=== PATIENT | male | born 1990 | race Caucasian/White ===

== ENCOUNTER 2019-07-10 14:26 | Emergency (ER) | payer BC, SELFPAY ==
[2019-07-10 14:38] VITALS: BP 126/73; PULSE 51; RESP 16; TEMP 36.2; O2SAT 100; BMI 72.7
[2019-07-10] MEDS: SODIUM CHLORIDE 0.9% 1,000 ML 150 ML IV (15:09)
[2019-07-10 15:15] LABS: Add Manual Diff / Slide Review NO; Basophils Absolute Auto 0 /uL (0-100); Basophils Percent Auto 0.6 % (0-2); Eosinophils Absolute Auto 300 /uL (0-450); Eosinophils Percent Auto 4.3 % (2-4); Hematocrit 43.8 % (41-53); Lymphocytes Absolute Auto 3300 /uL (1100-4500); Lymphocytes Percent Auto 43.8 % (25-40); Mean Corpuscular HGB Conc 34.3 % (30-36); Mean Corpuscular Hemoglobin 31.8 PG (26-34); Mean Corpuscular Volume 92.8 fL (80-100); Monocytes Absolute Auto 500 /uL (0-900); Monocytes Percent Auto 6.9 % (3-14); Neutrophils Absolute Auto 3400 /uL (1500-7000); Neutrophils Percent Auto 44.4 % (50-75); Platelet Count 227 X10^3/uL (150-400); Red Blood Cell Count 4.72 X10^6/uL (4.5-5.9); Red Cell Distribution Width 13.4 % (11.6-14.8); White Blood Cell Count 7.6 X10^3/uL (4.5-11.0)
[2019-07-10 15:27] LABS: Alanine Aminotransferase 15 IU/L (21-72); Albumin 4.2 g/dL (3.5-5.0); Albumin Globulin Ratio 1.4 (1.0-2.8); Alkaline Phosphatase 76 U/L (38-126); Aspartate Aminotransferase 25 IU/L (17-59); BUN Creatinine Ratio 23.8 (6-22); Bilirubin Total 0.6 mg/dL (0.2-1.3); Blood Urea Nitrogen 19 mg/dL (9-20); Carbon Dioxide 26 mmol/L (22-32); Chloride 107 mmol/L (98-107); Estimated Glomerular Filt Rate > 60.0 mL/min (>60); Globulin 3.1 g/dL (1.7-4.1); Glucose 119 mg/dL (70-100); HEMOLYSIS < 15 (0-50); Lipase 54 U/L (23-300); Sodium 140 mmol/L (137-145); Total Protein 7.3 g/dL (6.3-8.2)
[2019-07-10] MEDS: ONDANSETRON 4 MG/2 ML INJ IV (15:29)
[2019-07-10] MEDS: MORPHINE 4 MG/ML INJ IV ×2 (15:29→15:49)
[2019-07-10 15:32] LABS: Amylase 85 U/L (30-110)
[2019-07-10 15:43] VITALS: BP 158/71; PULSE 78; O2SAT 100
--- NOTE | 2019-07-10 15:44 | DI.CT.S_ITS ---
PROCEDURE: CT KIDNEY URETER BLADDER (KUB) INDICATIONS: left flank pain TECHNIQUE: Noncontrast 5 mm thick sections acquired from the diaphragms to the symphysis. 5 mm thick coronal and sagittal reformats were then performed. For radiation dose reduction, the following was used: automated exposure control, adjustment of mA and/or kV according to patient size. COMPARISON: None. FINDINGS: Image quality: Excellent. Lung bases: Lung bases are clear. Heart size is normal. Urinary system: Both kidneys are normal in size. There is a tiny 1 mm nonobstructing stone seen within the left kidney, as on series 2 image 45. There is a mild amount of left-sided hydronephrosis. No definite perinephric fat stranding. Both ureters appear non-dilated throughout their expected courses. Bladder wall thickness is normal. There is a tiny 1-2 mm stone layering dependently within the bladder. Other solid organs: Liver is normal in size. Gallbladder wall is not thickened. Pancreas is normal in contours. Spleen is normal in size. No adrenal nodules. Peritoneum and bowel: Unenhanced bowel loops demonstrate normal wall thickness and caliber. No free fluid or air. Minimal sigmoid diverticulosis is seen, without findings of active diverticulitis. Incidental note is made of a normal-appearing appendix. Nodes and vessels: No retroperitoneal or mesenteric adenopathy by size criteria. Aorta and inferior vena cava are normal in caliber. Abdominal wall: No ventral hernias. Pelvis: No free pelvic fluid. No inguinal hernias or adenopathy. Bones: No suspicious bony lesions. No vertebral body compression fractures. IMPRESSION: Recently passed ureteral stone, which is now within the bladder (1-2 mm). There is mild residual left-sided hydronephrosis. Tiny 1 mm nonobstructing stone seen within the left kidney. Incidental note is made of: Minimal sigmoid diverticulosis. No diverticulitis. Normal appendix Dictated by: Zaire Palmer M.D. on 07/10/2019 at 15:48 Approved by: Zaire Palmer M.D. on 07/10/2019 at 15:51
--- NOTE | 2019-07-10 15:54 | PC.NURSE ---
rate increased to wide open.
[2019-07-10] MEDS: SODIUM CHLORIDE 0.9% 1,000 ML 1000 ML IV (15:58)
[2019-07-10] MEDS: KETOROLAC 60 MG/2 ML VIAL 30 MG IV (16:05)
--- NOTE | 2019-07-10 16:07 | ED.ABDPAIN ---
HPI - Abdominal Pain <[facility] - Last Filed: 07/10/19 18:17> General Chief Complaint: Abdominal Pain Stated Complaint: severe abd pain on lft Time Seen by Provider: 07/10/19 15:10 Source: patient and family Mode of arrival: ambulatory Limitations: no limitations History of Present Illness HPI narrative: The patient is a 29-year-old male current smoker with history of recreational drug use who presents with a chief complaint of left lower quadrant pain, left flank pain he states it came on suddenly approximately 1 hour prior to arrival. He states the pain comes in waves. Denies any dysuria urgency or frequency. He states the pain is so bad he gets nauseous and started vomiting. He denies any blood in his urine. He denies any history of kidney stones. He denies any chest pain, shortness of breath cough or congestion Related Data Previous Rx's Medication Instructions Recorded hydrocodone-acetaminophen [[place]] 1 tab PO Q4H PRN #7 tab 07/10/19 ketorolac 10 mg PO TID PRN #20 tab 07/10/19 ondansetron 4 mg PO Q6H PRN #20 tab 07/10/19 tamsulosin [Flomax] 0.4 mg PO DAILY #7 cap 07/10/19 Allergies Allergy/AdvReac Type Severity Reaction Status Date / Time No Known Drug Allergies Allergy Verified 07/10/19 14:42 Review of Systems <CONNIE Monroe - Last Filed: 07/10/19 18:17> Review of Systems GENERAL: Denies chills, fatigue, malaise, fever, sweats. HEENT: Denies sinus pain, ear pain, sore throat, difficulty swallowing, dizziness. RESPIRATORY: Denies dyspnea, cough, wheezing, hemoptysis, sputum. CARDIOVASCULAR: Denies chest pain, palpitations, orthopnea, edema, GASTROINTESTINAL: See HPI : See HPI MUSCULOSKELETAL: denies weakness, joint pain, or bony pain SKIN: Denies rash, skin lesions, or other NEUROLOGIC: Denies weakness, headache, numbness, change in speech, confusion, seizures, incoordination. PSYCHIATRIC: No concerning psychosocial issues. 12 point review of systems is negative except for those stated above PFSH <[facility] - Last Filed: 07/10/19 18:17> Social History Smoking Status: Current every day smoker Social History Smoking Status: Current every day smoker Exam <MARIBEL Monroe - Last Filed: 07/10/19 18:17> Narrative Exam Narrative: GENERAL: This is a well-nourished, well-developed patient, appears uncomfortable HEAD: Atraumatic. Normocephalic. No temporal or scalp tenderness. EYES: Pupils equal round and reactive. Extraocular motions intact. No scleral icterus. No injection or drainage. ENT: Nose without bleeding, purulent drainage or septal hematoma. Throat without erythema, tonsillar hypertrophy or exudate. Uvula midline. Airway patent. NECK: Trachea midline. No JVD or lymphadenopathy. Supple, nontender, no meningeal signs. CARDIOVASCULAR: Regular rate and rhythm RESPIRATORY: Clear to auscultation. Breath sounds equal bilaterally. No wheezes, rales, or rhonchi. No cough. No increased respiratory effort. No accessory muscle use. GASTROINTESTINAL: Abdomen soft,, nondistended. No hepato-splenomegaly, or palpable masses. No guarding. Diffuse tenderness left lower quadrant EXTREMITIES: No clubbing, cyanosis, or edema. No joint tenderness, effusion, or edema noted. BACK: Nontender without deformity or crepitance. Left flank tenderness. No CVA tenderness right side. NEURO: AOx3. SKIN: No rash or erythema. Initial Vital Signs Initial Vital Signs: Vital Signs Temperature 97.2 F L 07/10/19 14:38 Pulse Rate 51 L 07/10/19 14:38 Respiratory Rate 16 07/10/19 14:38 Blood Pressure 126/73 07/10/19 14:38 Pulse Oximetry 100 07/10/19 14:38 <Kerry Bentley DO - Last Filed: 07/11/19 07:35> Initial Vital Signs Initial Vital Signs: Vital Signs Temperature 97.2 F L 07/10/19 14:38 Pulse Rate 51 L 07/10/19 14:38 Respiratory Rate 16 07/10/19 14:38 Blood Pressure 126/73 07/10/19 14:38 Pulse Oximetry 100 07/10/19 14:38 Course <Teressasandie Gravesmer, [facility] - Last Filed: 07/10/19 18:17> Orders Ordered: Discontinued Medications Hydrocodone Bitart/Acetaminophen (Vicodin Prepack) 1 bottle MISC SEEINSTR ONE Stop: 07/10/19 18:04 Last Admin: 07/10/19 18:19 Dose: 1 bottle Sodium Chloride (Normal Saline 0.9%) 1,000 mls @ 150 mls/hr IV CONT SUSANNE Last Infusion: 07/10/19 15:54 Dose: 0 mls/hr Admin: 07/10/19 15:09 Dose: 150 mls/hr Sodium Chloride (Normal Saline 0.9%) 1,000 mls @ 1,000 mls/hr IV BOLUS ONE Stop: 07/10/19 16:54 Last Infusion: 07/10/19 17:00 Dose: 0 mls/hr Admin: 07/10/19 15:58 Dose: 1,000 mls/hr Ketorolac Tromethamine (Toradol) 30 mg IV NOW ONE Stop: 07/10/19 16:00 Last Admin: 07/10/19 16:05 Dose: 30 mg Morphine Sulfate (Morphine) 4 mg IV NOW ONE Stop: 07/10/19 15:20 Last Admin: 07/10/19 15:29 Dose: 4 mg Morphine Sulfate (Morphine) 4 mg IV NOW ONE Stop: 07/10/19 15:45 Last Admin: 07/10/19 15:49 Dose: 4 mg Ondansetron HCl (Zofran) 4 mg IV NOW ONE Stop: 07/10/19 15:20 Last Admin: 07/10/19 15:29 Dose: 4 mg Ondansetron HCl (Zofran Odt Prepack) 1 bottle MISC SEEINSTR ONE Stop: 07/10/19 18:04 Last Admin: 07/10/19 18:19 Dose: 1 bottle Vital Signs - 8 hr 07/10/19 14:38 07/10/19 15:43 07/10/19 17:00 Temperature 97.2 F L Pulse Rate 51 L 78 69 Respiratory Rate 16 15 Blood Pressure 126/73 Blood Pressure [Right Arm] 158/71 H 121/54 L Pulse Oximetry 100 100 98 07/10/19 18:10 Temperature Pulse Rate 70 Respiratory Rate 17 Blood Pressure Blood Pressure [Right Arm] 138/64 Pulse Oximetry 99 <Kerry Bentley DO - Last Filed: 07/11/19 07:35> Orders Ordered: Discontinued Medications Hydrocodone Bitart/Acetaminophen (Vicodin Prepack) 1 bottle MISC SEEINSTR ONE Stop: 07/10/19 18:04 Last Admin: 07/10/19 18:19 Dose: 1 bottle Sodium Chloride (Normal Saline 0.9%) 1,000 mls @ 150 mls/hr IV CONT SUSANNE Last Infusion: 07/10/19 15:54 Dose: 0 mls/hr Admin: 07/10/19 15:09 Dose: 150 mls/hr Sodium Chloride (Normal Saline 0.9%) 1,000 mls @ 1,000 mls/hr IV BOLUS ONE Stop: 07/10/19 16:54 Last Infusion: 07/10/19 17:00 Dose: 0 mls/hr Admin: 07/10/19 15:58 Dose: 1,000 mls/hr Ketorolac Tromethamine (Toradol) 30 mg IV NOW ONE Stop: 07/10/19 16:00 Last Admin: 07/10/19 16:05 Dose: 30 mg Morphine Sulfate (Morphine) 4 mg IV NOW ONE Stop: 07/10/19 15:20 Last Admin: 07/10/19 15:29 Dose: 4 mg Morphine Sulfate (Morphine) 4 mg IV NOW ONE Stop: 07/10/19 15:45 Last Admin: 07/10/19 15:49 Dose: 4 mg Ondansetron HCl (Zofran) 4 mg IV NOW ONE Stop: 07/10/19 15:20 Last Admin: 07/10/19 15:29 Dose: 4 mg Ondansetron HCl (Zofran Odt Prepack) 1 bottle MISC SEEINSTR ONE Stop: 07/10/19 18:04 Last Admin: 07/10/19 18:19 Dose: 1 bottle Vital Signs - 8 hr 07/10/19 14:38 07/10/19 15:43 07/10/19 17:00 Temperature 97.2 F L Pulse Rate 51 L 78 69 Respiratory Rate 16 15 Blood Pressure 126/73 Blood Pressure [Right Arm] 158/71 H 121/54 L Pulse Oximetry 100 100 98 07/10/19 18:10 Temperature Pulse Rate 70 Respiratory Rate 17 Blood Pressure Blood Pressure [Right Arm] 138/64 Pulse Oximetry 99 MDM - Abdominal Pain <Teressa Maharaj, [facility] - Last Filed: 07/10/19 18:17> Lab Data Result diagrams: 07/10/19 15:00 07/10/19 15:00 Lab Results 07/10/19 07/10/19 07/10/19 Range/Units 15:00 15:00 17:46 WBC 7.6 (4.5-11.0) X10^3/uL RBC 4.72 (4.5-5.9) X10^6/uL Hgb 15.0 (13.5-17.5) g/dL Hct 43.8 (41-53) % MCV 92.8 (80-100) fL MCH 31.8 (26-34) PG MCHC 34.3 (30-36) % RDW 13.4 (11.6-14.8) % Plt Count 227 (150-400) X10^3/uL Neut % (Auto) 44.4 L (50-75) % Lymph % (Auto) 43.8 H (25-40) % [place] % (Auto) 6.9 (3-14) % Eos % (Auto) 4.3 H (2-4) % Baso % (Auto) 0.6 (0-2) % Neut # (Auto) 3400 (0906-4413) /uL Lymph # (Auto) 3300 (8173-7024) /uL [place] # (Auto) 500 (0-900) /uL Eos # (Auto) 300 (0-450) /uL Baso # (Auto) 0 (0-100) /uL Sodium 140 (137-145) mmol/L Potassium 4.0 (3.4-5.1) mmol/L Chloride 107 (98-107) mmol/L Carbon Dioxide 26 (22-32) mmol/L BUN 19 (9-20) mg/dL Creatinine 0.80 (0.66-1.25) mg/dL Estimated GFR > 60.0 (>60) mL/min BUN/Creatinine Ratio 23.8 H (6-22) Glucose 119 H (70-100) mg/dL Calcium 9.0 (8.4-10.2) mg/dL Total Bilirubin 0.6 (0.2-1.3) mg/dL AST 25 (17-59) IU/L ALT 15 L (21-72) IU/L Alkaline Phosphatase 76 (38-126) U/L Total Protein 7.3 (6.3-8.2) g/dL Albumin 4.2 (3.5-5.0) g/dL Globulin 3.1 (1.7-4.1) g/dL Albumin/Globulin Ratio 1.4 (1.0-2.8) Amylase 85 (30-110) U/L Lipase 54 (23-300) U/L Urine RBC 1-5/hpf (0-5/HPF) Urine WBC 0-1/hpf (0-5/HPF) Urine Bacteria Occasional (0-1) (None) Urine Mucus 1+ H (Negative) Ur Culture Indicated? Cult not indicated Point of care testing: Urine Dip Bedside Urine Glucose Negative Bedside Urine Bilirubin - Negative Bedside Urine Ketone - Negative Urine Specific [place] 1.015 Bedside Urine Occult Blood ++ Bedside Urine pH 6.5 Bedside Urine Protein - Negative Bedside Urine Urobilinogen - Negative Bedside Urine Nitrite - Negative Bedside Urine Leukocytes - Negative Esterase Imaging Data CT KUB: Radiologist's impression: [place] [address] CT Scan Report Signed Patient: Jay May#: [id number] : 1990Acct:[id number] Age/Sex: 29 / MDate of Service: 07/10/19 Loc: ED Accession Number: [id number] Procedure: CT kidney ureter bladder (KUB) Ordering Provider: Teressa Maharaj PROCEDURE: CT KIDNEY URETER BLADDER (KUB) INDICATIONS: left flank pain TECHNIQUE: Noncontrast 5 mm thick sections acquired from the diaphragms to the symphysis. 5 mm thick coronal and sagittal reformats were then performed. For radiation dose reduction, the following was used: automated exposure control, adjustment of mA and/or kV according to patient size. COMPARISON: None. FINDINGS: Image quality: Excellent. Lung bases: Lung bases are clear. Heart size is normal. Urinary system: Both kidneys are normal in size. There is a tiny 1 mm nonobstructing stone seen within the left kidney, as on series 2 image 45. There is a mild amount of left-sided hydronephrosis. No definite perinephric fat stranding. Both ureters appear non-dilated throughout their expected courses. Bladder wall thickness is normal. There is a tiny 1-2 mm stone layering dependently within the bladder. Other solid organs: Liver is normal in size. Gallbladder wall is not thickened. Pancreas is normal in contours. Spleen is normal in size. No adrenal nodules. Peritoneum and bowel: Unenhanced bowel loops demonstrate normal wall thickness and caliber. No free fluid or air. Minimal sigmoid diverticulosis is seen, without findings of active diverticulitis. Incidental note is made of a normal-appearing appendix. Nodes and vessels: No retroperitoneal or mesenteric adenopathy by size criteria. Aorta and inferior vena cava are normal in caliber. Abdominal wall: No ventral hernias. Pelvis: No free pelvic fluid. No inguinal hernias or adenopathy. Bones: No suspicious bony lesions. No vertebral body compression fractures. IMPRESSION: Recently passed ureteral stone, which is now within the bladder (1-2 mm). There is mild residual left-sided hydronephrosis. Tiny 1 mm nonobstructing stone seen within the left kidney. Incidental note is made of: Minimal sigmoid diverticulosis. No diverticulitis. Normal appendix Dictated by: Zaire Palmer M.D. on 07/10/2019 at 15:48 Approved by: Zaire Palmer M.D. on 07/10/2019 at 15:51 MDM Narrative Medical decision making narrative: The patient is a 29-year-old male who presents with a chief complaint of left-sided flank pain and abdominal pain. Given his sudden onset of his pain, associated nausea and vomiting as suspected kidney stone. He was noted to have some hematuria. A CT KUB shows a recently passed ureteral stone within the bladder. He has no signs of infection in his urine. His renal functions within normal limits. I did give him pain and nausea medications as well as follow-up precautions with a PCP. He is connected to the [facility] health human resources operations director, and I discussed that the walk-in clinic is willing to do follow-up. Encourage PCP follow-up. Discussed come back to the ER for any acute concerns such as inability keep down fluids. Discussed monitoring for signs of infection such as dysuria urgency or frequency. No questions or concerns upon discharge <Kerry Bentley DO - Last Filed: 07/11/19 07:35> Lab Data Lab Results 07/10/19 07/10/1907/10/19 Range/Units 15:00 15:00 17:46 WBC 7.6 (4.5-11.0) X10^3/uL RBC 4.72 (4.5-5.9) X10^6/uL Hgb 15.0 (13.5-17.5) g/dL Hct 43.8 (41-53) % MCV 92.8 (80-100) fL MCH 31.8 (26-34) PG MCHC 34.3 (30-36) % RDW 13.4 (11.6-14.8) % Plt Count 227 (150-400) X10^3/uL Neut % (Auto) 44.4 L (50-75) % Lymph % (Auto) 43.8 H (25-40) % [place] % (Auto) 6.9 (3-14) % Eos % (Auto) 4.3 H (2-4) % Baso % (Auto) 0.6 (0-2) % Neut # (Auto) 3400 (7606-2245) /uL Lymph # (Auto) 3300 (7085-8433) /uL [place] # (Auto) 500 (0-900) /uL Eos # (Auto) 300 (0-450) /uL Baso # (Auto) 0 (0-100) /uL Sodium 140 (137-145) mmol/L Potassium 4.0 (3.4-5.1) mmol/L Chloride 107 (98-107) mmol/L Carbon Dioxide 26 (22-32) mmol/L BUN 19 (9-20) mg/dL Creatinine 0.80 (0.66-1.25) mg/dL Estimated GFR > 60.0 (>60) mL/min BUN/Creatinine Ratio 23.8 H (6-22) Glucose 119 H (70-100) mg/dL Calcium 9.0 (8.4-10.2) mg/dL Total Bilirubin 0.6 (0.2-1.3) mg/dL AST 25 (17-59) IU/L ALT 15 L (21-72) IU/L Alkaline Phosphatase 76 (38-126) U/L Total Protein 7.3 (6.3-8.2) g/dL Albumin 4.2 (3.5-5.0) g/dL Globulin 3.1 (1.7-4.1) g/dL Albumin/Globulin Ratio 1.4 (1.0-2.8) Amylase 85 (30-110) U/L Lipase 54 (23-300) U/L Urine RBC 1-5/hpf (0-5/HPF) Urine WBC 0-1/hpf (0-5/HPF) Urine Bacteria Occasional (0-1) (None) Urine Mucus 1+ H (Negative) Ur Culture Indicated? Cult not indicated Point of care testing: Urine Dip Bedside Urine Glucose Negative Bedside Urine Bilirubin - Negative Bedside Urine Ketone - Negative Urine Specific [place] 1.015 Bedside Urine Occult Blood ++ Bedside Urine pH 6.5 Bedside Urine Protein - Negative Bedside Urine Urobilinogen - Negative Bedside Urine Nitrite - Negative Bedside Urine Leukocytes - Negative Esterase Discharge Plan Departure Patient Disposition: Home Clinical Impression: Kidney stone on left side Discharge Date/Time: 07/10/19 18:25 Interventions: ED Discharge Assessment Last Done: 07/10/19 18:24 Instructions: DI for Kidney Stones Activity Restrictions/Additional Instructions: Your CT scan shows a kidney stone, that is passed into your bladder. I have given you several prescriptions for pain and nausea. Do not combine ketorolac with any other NSAIDs such as Aleve or ibuprofen. Be aware that [place] can be constipating and sedating. Please come back to the emergency department for any acute concerns such As inability keep down fluids. Please monitor for signs of infection such as burning, urgency and frequency. Please follow up with primary care provider. Prescriptions: New hydrocodone-acetaminophen [[place]] 5-325 mg tablet 1 tab PO Q4H PRN (Reason: pain) Qty: 7 RF: 0 ketorolac 10 mg tablet 10 mg PO TID PRN (Reason: pain) Qty: 20 RF: 0 tamsulosin [Flomax] 0.4 mg capsule 0.4 mg PO DAILY Qty: 7 RF: 0 ondansetron 4 mg tablet,disintegrating 4 mg PO Q6H PRN (Reason: nausea and vomiting) Qty: 20 RF: 0 Referrals: [facility] [Outside] Stand Alone Forms: Work Release Note <Kerry Bentley DO - Last Filed: 07/11/19 07:35> Cosign ED Attending Umeshature Attestation: I was immediately available in the department for consultation. Documentation has been reviewed. I agree with assessment and plan.
[2019-07-10 17:00] VITALS: BP 121/54; PULSE 69; RESP 15; O2SAT 98
[2019-07-10 18:00] LABS: Bacteria Urine Occasional (0-1); Culture Indicated Urine Cult Not Indicated; Mucus Urine 1+ (Negative); RBC Urine 1-5/HPF (0-5/HPF); WBC Urine 0-1/HPF (0-5/HPF)
[2019-07-10 18:10] VITALS: BP 138/64; PULSE 70; RESP 17; O2SAT 99
[2019-07-10] MEDS: ONDANSETRON 4 MG ODT PREPACK 1 BOTTLE MISC (18:19)
[2019-07-10] MEDS: HYDROCODONE/ACET 5/325 PREPACK 1 BOTTLE MISC (18:19)
[2019-07-10 18:24] VITALS: BP 138/64; PULSE 66; RESP 18; O2SAT 99
== END 2019-07-10 18:25 | disposition home or self-care (01) ==
PROVIDERS: Emergency Medicine; Emergency Provider Nurse Practitioner Family
DX: N20.0 Calculus of kidney (principal)
CPT/HCPCS: 36591; 74176; 80053; 81003; 81015; 82150; 83690; 85025; 96361; 96374; 96375; 99283; 99284; J1885; J2270; J2405

== ENCOUNTER → 2025-11-03 13:10 | Outpatient (CLI) | payer BC, SELFPAY ==
[2025-11-03 13:50] LABS: Add Manual Diff / Slide Review NO; Hematocrit 42.9 % (41-53); Hemoglobin 14.9 g/dL (13.5-17.5); Lymphocytes Absolute Auto 1500 /uL (1100-4500); Mean Corpuscular HGB Conc 34.8 % (30-36); Mean Corpuscular Hemoglobin 32.6 PG (26-34); Mean Corpuscular Volume 93.7 fL (80-100); Platelet Count 220 X10^3/uL (150-400)
[2025-11-03 14:08] LABS: Alanine Aminotransferase 53 IU/L (<50); Albumin 4.7 g/dL (3.5-5.0); Albumin Globulin Ratio 1.7 (1.0-2.8); Alkaline Phosphatase 63 U/L (38-126); Blood Urea Nitrogen 22 mg/dL (9-20); Calcium 9.8 mg/dL (8.4-10.2); Carbon Dioxide 23 mmol/L (22-32); Chloride 107 mmol/L (98-107); Cholesterol 264 mg/dL (140-199); Estimated Glomerular Filt Rate > 60 mL/min (>60); Globulin 2.8 g/dL (1.7-4.1); Glucose 88 mg/dL (70-99); HDL Cholesterol 66 mg/dL (40-60); HEMOLYSIS < 15 (0-50); Potassium 4.5 mmol/L (3.4-5.1); Sodium 140 mmol/L (137-145); Total Protein 7.5 g/dL (6.3-8.2); Triglycerides 181 mg/dL (35-150)
[2025-11-03 14:37] LABS: TSH w/ Reflex to FT4 0.84 uIU/mL (0.47-4.68)
== END ==
PROVIDERS: PCP Nurse Practitioner Family; Referring Provider Nurse Practitioner Family; Visit Provider Nurse Practitioner Family
DX: E66.3 Overweight (principal); Z78.9 Other specified health status
CPT/HCPCS: 36415; 80053; 80061; 84443; 85025